=== PATIENT | female | born 1995 | race Caucasian/White ===

== ENCOUNTER → 2017-04-26 | Outpatient (CLI) | payer OTHER ==
--- NOTE | 2017-04-26 13:08 | XCELERA REPORT ---
[address] [address] Transthoracic Echocardiogram Report Name: SUSY STOUT Age: 21 yrs Gender: Female : 1995 Patient Status: Outpatient Patient Location: Study Date: 04/26/2017 11:12 AM Height: 64 in Weight: 136 lb BSA: 1.7 m2 Procedure: A complete two-dimensional transthoracic echocardiogram was performed (2D, M-mode, spectral and color flow Doppler). The study was technically adequate with some images being suboptimal in quality. Reason For Study: MURMUR Ordering Physician: DELFINA GAFFNEY Performed By: Deonte Weller Interpretation Summary The left ventricular ejection fraction is normal. There is borderline concentric left ventricular hypertrophy. Doppler measurements suggest normal left ventricular diastolic function The left ventricle is grossly normal size. No regional wall motion abnormalities noted. The right ventricular systolic function is normal. The right atrium is normal in size The left atrial size is normal. There is no mitral regurgitation noted. There is no mitral valve stenosis. There is no aortic valve stenosis No aortic regurgitation is present. There is a trace to mild amount of tricuspid regurgitation Right ventricular systolic pressure is at the upper limits of normal The aortic root is not well visualized but is probably normal size. The inferior vena cava appeared normal and decreased < 50% with respiration (RAP 10-15 mmHg) There is no pericardial effusion. MMode/2D Measurements & Calculations RVDd: 2.5 cm LVIDd: 4.8 cm FS: 44.2 % Ao root diam: 2.0 cm IVSd: 0.75 cm LVIDs: 2.7 cm EDV(Teich): 106.2 ml LVPWd: 0.85 cm ESV(Teich): 26.1 ml Ao root area: 3.3 cm2 EF(Teich): 75.4 % LA dimension: 3.1 cm Doppler Measurements & Calculations MV E max terence: MV P1/2t max terence: Ao V2 max: LV V1 max P.1 cm/sec 110.2 cm/sec 167.2 cm/sec 8.8 mmHg MV A max terence: MV P1/2t: 82.7 msec Ao max PG: LV V1 max: 36.7 cm/sec 11.2 mmHg 148.7 cm/sec MV E/A: 3.0 MVA(P1/2t): 2.7 cm2 MV dec slope: 390.3 cm/sec2 PA V2 max: PI end-d terence: TR max terence: 149.2 cm/sec 105.9 cm/sec 246.5 cm/sec PA max PG: TR max P.9 mmHg 24.3 mmHg Left Ventricle The left ventricle is grossly normal size. There is borderline concentric left ventricular hypertrophy. The left ventricular ejection fraction is normal. Doppler measurements suggest normal left ventricular diastolic function. No regional wall motion abnormalities noted. Right Ventricle The right ventricle is grossly normal size. There is normal right ventricular wall thickness. The right ventricular systolic function is normal. Atria The right atrium is normal in size. The left atrial size is normal. Interarterial septum not well visualized and not well dopplered. Cannot comment on ASD/PFO presence. Mitral Valve The mitral valve is grossly normal. There is no mitral valve stenosis. There is no mitral regurgitation noted. Aortic Valve The aortic valve is grossly normal. There is no aortic valve stenosis. No aortic regurgitation is present. Tricuspid Valve The tricuspid valve is not well visualized, but is grossly normal. There is no tricuspid stenosis. There is a trace to mild amount of tricuspid regurgitation. Right ventricular systolic pressure is at the upper limits of normal. Pulmonic Valve The pulmonic valve is not well visualized. Great Vessels The aortic root is not well visualized but is probably normal size. The inferior vena cava appeared normal and decreased < 50% with respiration (RAP 10-15 mmHg). Effusions There is no pericardial effusion. : DELFINA GAFFNEY > Debbie Ramos
== END ==
LOC: SP 10:41
PROVIDERS: ATTEND Physician Assistant
DX: R01.1 Cardiac murmur, unspecified (principal)
CPT/HCPCS: 93306